=== PATIENT | male | born 1995 | race Caucasian/White ===

== ENCOUNTER 2017-06-03 13:13 | Emergency (ER) | payer SELFPAY ==
[~2017-06-03] VITALS: Ht 180.3 cm; Wt 89.0 kg
[2017-06-03 13:22] VITALS: TEMP 36.9; Ht 180.3 cm; Wt 89.0 kg
--- NOTE | 2017-06-03 14:03 | EMERGENCY ROOM VISIT NOTE ---
History Report prepared by Analisa: Cresencio Samuels Under the Supervision of: Dr. Tomas Huggins M.D. First contact with patient: 13:25 Chief Complaint: FEVER Stated Complaint: FEVER, CHILLS, SWEATING, FAINTING History of Present Illness The patient is a 22 year old white male with a past medical history of foot surgery and syncope who presents to the ED with a cc of intermittent headaches beginning a week ago. He rates his discomfort as a 5/10 in severity. Positive fevers, chills, diaphoresis, occasional drinking, chest pain, caffeine use. Negative vision changes, history of seizures, nausea, vomiting, drug use. The patient states he has been waking up with a headache on the top of his head every morning for a week. He reports that today he woke up this morning experiencing diaphoresis and a fever. He states that he took Advil for his symptoms and admits it has helped relieve symptoms. The patient states that he has been experiencing syncope in the last couple of months, with his last episode 2 months ago. He reports that he went to the [facility] last month because he became dizzy and felt as if he was going to experience another syncopal episode. The patient states he has not been eating much lately and has been pale. He admits that he has been working long hours daily. Source of History: patient Onset: a week ago Position: head Symptom Intensity: 5/10 Timing: intermittent Modifying Factors (Relieving): other (Advil) Associated Symptoms: + fevers, + chills, + chest pain, No nausea, No vomiting Review of Systems See HPI for pertinent positives and negatives. A total of ten systems were reviewed and were otherwise negative. Past Medical & Surgical Surgical Problems: (1) H/O foot surgery Family History Patient reports no known family medical history. Social History Smoking Status: Never Smoker Alcohol Use: occasionally Drug Use: none Marital Status: single Housing Status: lives with family Occupation Status: employed Current/Historical Medications No Active Prescriptions or Reported Meds Allergies Coded Allergies: Penicillins (Verified Allergy, Unknown, unknown, 06/03/17) Physical Exam Vital Signs Date Time Temp Pulse Resp B/P (MAP) Pulse Ox O2 Delivery O2 Flow Rate FiO2 06/03/17 17:26 66 20 126/75 100 06/03/17 15:24 117/78 06/03/17 15:13 61 98 06/03/17 14:16 68 06/03/17 14:10 98 Room Air 06/03/17 13:22 36.9 83 18 130/76 100 Physical Exam GENERAL: Awake, alert, well-appearing, NAD HENT: Normocephalic, atraumatic. EYES: Normal conjunctiva. Sclera non-icteric. NECK: Supple. No nuchal rigidity. FROM. RESPIRATORY: CTAB, no rhonchi, wheezing, crackles CARDIAC: RRR, no MRG ABDOMEN: Soft, NTND, BS+ MSK: No chest wall TTP, no LE edema NEURO: CN 2-12 intact, 5/5 upper and lower extremity strength, no dysmetria, no drift, good finger to nose, no sensory deficits, no field deficits, visual acuity normal to finger count. SKIN: No rash or jaundice noted. Medical Decision & Procedures ER Provider Diagnostic Interpretation: Radiology results as stated below per my review and radiologist interpretation: COMPARISON STUDY: No previous studies for comparison. CT DOSE: 537.48 mGy.cm TECHNIQUE: Helical axial images of the head were obtained without IV contrast. Automated exposure control was utilized for the study. A dose lowering technique was utilized adhering to the principles of ALARA. FINDINGS: No acute intracranial hemorrhage, midline shift or mass effect is present. Ventricular system is normal. Basilar cisterns are patent. White-white differentiation is maintained. There are no findings to suggest acute dural sinus thrombosis or acute territorial infarct. There is a 1.8 x 1.5 cm CSF attenuation retrocerebellar structure just to the left of midline, within the posterior fossa with associated remodeling of the inner table of the calvarium. Visualized portions of the sinuses and mastoid air cells are clear. There is no calvarial fracture. IMPRESSION: 1. No acute intracranial findings. 2. 1.8 x 1.5 cm CSF attenuation retrocerebellar structure just to the left of midline, within the posterior fossa. This could reflect a small arachnoid cyst or jarvis cisterna magna and is of no clinical significance. Electronically signed by: Michael Sanford M.D. 06/03/2017 2:49 PM Dictated Date/Time: 06/03/2017 2:44 PM CHEST 2 VIEWS ROUTINE CLINICAL HISTORY: 22 years-old Male presenting with palpitations, fever, fainting. TECHNIQUE: PA and lateral views of the chest were obtained. COMPARISON: None. FINDINGS: Cardiomediastinal silhouette normal. Lungs and pleural spaces clear. Osseous structures normal. Upper abdomen normal. IMPRESSION: 1. No acute cardiopulmonary disease. Electronically signed by: Enoc Faustin M.D. 06/03/2017 3:52 PM Dictated Date/Time: 06/03/2017 3:52 PM Laboratory Results 06/03/17 14:15 Red Blood Count 4.16, Mean Corpuscular Volume 87.7, Mean Corpuscular Hemoglobin 30.3, Mean Corpuscular Hemoglobin Concent 34.5, Mean Platelet Volume 9.6 06/03/17 14:15 Test 06/03/17 14:15 White Blood Count 4.14 K/uL (4.8-10.8) Red Blood Count 4.16 M/uL (4.7-6.1) Hemoglobin 12.6 g/dL (14.0-18.0) Hematocrit 36.5 % (42-52) Mean Corpuscular Volume 87.7 fL (80-100) Mean Corpuscular Hemoglobin 30.3 pg (25-34) Mean Corpuscular Hemoglobin Concent 34.5 g/dl (32-36) Platelet Count 100 K/uL (130-400) Mean Platelet Volume 9.6 fL (7.4-10.4) RDW Standard Deviation 40.7 fL (36.4-46.3) RDW Coefficient of Variation 12.7 % (11.5-14.5) Neutrophils % (Manual) 47.2 % Lymphocytes % (Manual) 15.5 % Variant Lymphocytes % (manual) 30.9 % Monocytes % (Manual) 6.4 % Neutrophils # (Manual) 1.95 K/uL (1.4-6.5) Total Absolute Neutrophils 1.95 K/uL (1.4-6.5) Lymphocytes # (Manual) 0.64 K/uL (1.2-3.4) Absolute Variant Lymphocytes 1.28 K/uL Total Absolute Lymphocytes 1.92 K/uL (1.2-3.4) Monocytes # (Manual) 0.26 K/uL (0.11-0.59) Platelet Estimate DECREASED Red Blood Cell Morphology Unremarkable Anion Gap 5.0 mmol/L (3-11) Est Creatinine Clear Calc Drug Dose 112.1 ml/min Estimated GFR () 109.9 Estimated GFR (Non- 94.8 BUN/Creatinine Ratio 18.5 (10-20) Calcium Level 8.7 mg/dl (8.5-10.1) Magnesium Level 2.1 mg/dl (1.8-2.4) Total Bilirubin 0.8 mg/dl (0.2-1) Direct Bilirubin 0.2 mg/dl (0-0.2) Aspartate Amino Transf (AST/SGOT) 23 U/L (15-37) Alanine Aminotransferase (ALT/SGPT) 29 U/L (12-78) Alkaline Phosphatase 53 U/L (45-117) Total Protein 7.2 gm/dl (6.4-8.2) Albumin 3.5 gm/dl (3.4-5.0) Thyroid Stimulating Hormone (TSH) 5.960 uIu/ml (0.300-4.500) Laboratory results reviewed by me ECG Indication: syncope Rate (beats per minute): 67 Rhythm: normal sinus Findings: T-wave inversion (Single in V2), other (Normal intervals and axis, No other STS or TWI changes) ED Course 1350: The patient was evaluated in room C06. A complete history and physical exam was performed. 1656: I reevaluated the patient. Discussed results and discharge instructions: He verbalized understanding and agreement. The patient is ready for discharge. Medical Decision Triage Nursing notes reviewed. The patient is a 22 year old white male with a past medical history of foot surgery and syncope who presents to the ED with a cc of intermittent headaches beginning a week ago. The patient's presentation and history were concerning for etiologies such as vasovagal event, infection, hypoglycemia, electrolyte abnormalities, cardiac sources, intracerebral event, toxicologic, neurologic, as well as others were entertained. Patient was seen and evaluated the bedside. Patient had complained of 2 separate syncopal episodes that have been several months apart most recently approximately 2 months ago. Patient states he has had some more chronic headaches. No prior history of thrombophilia. No history of DVT or PE. Patient states that he has no changes in his vision. Patient states that his headaches are primarily in the morning on the top of the head of his head and typically get better with Advil. Patient does not take any blood thinning medications and denies any recent trauma. The patient has a nonfocal an unremarkable neurologic exam. Patient did have blood work that was completed along with chest x-ray, EKG, TSH, CT of the brain. CT of the brain did show a posterior fossa likely cyst but this is likely not clinically significant. Otherwise this imaging was negative acute. Patient did have a negative chest x- ray. Patient's blood work did show he had some mild anemia and mild thrombocytopenia. Patient does not have any evidence of spontaneous bleeding, petechiae, nor purpura. Patient's TSH was mildly elevated. Patient was advised that he would need further follow-up and treatment for this as he may be suffering from hypothyroidism. Patient was told to increase in of red meat he needs to help with his anemia. Patient was also given further resources given that he does not have insurance to follow-up with a primary care physician. The patient has no signs of meningismus and was not febrile. I do not believe he has meningitis and I do not believe he requires any further imaging of the head or neck at this time. Patient was deemed suitable for outpatient follow-up and treatment. Patient was given strict follow-up, discharge, and return precautions. All questions were answered. Patient was deemed suitable for outpatient follow-up at this time. Patient agreed with the plan of care and was safely discharged home. Medication Reconcilliation Current Medication List: was personally reviewed by me Blood Pressure Screening Patient's blood pressure: Normal blood pressure Impression Primary Impression: Hypothyroid Additional Impression: Anemia Scribe Attestation The scribe's documentation has been prepared under my direction and personally reviewed by me in its entirety. I confirm that the note above accurately reflects all work, treatment, procedures, and medical decision making performed by me. Departure Information Dispostion Home / Self-Care Prescriptions No Active Prescriptions or Reported Meds Referrals No Doctor, Assigned (PCP) Patient Instructions Anemia, ED Hypothyroidism, My [facility] Additional Instructions Please return to the emergency department if you have worsening or recurrent symptoms not amenable to at-home treatment. Please call for a follow-up appointment with her primary care physician. Please take your medications as prescribed. If you have other concerns and/or complaints please feel free to also call your primary care physician's office or return the ED for further evaluation, management, and treatment. Please follow-up with a primary care physician to further discuss the thyroid as well as her mild anemia. You may take 600 mg Ibuprofen every 6 hours as needed for pain with food for no more than 2 consecutive days. You may take tylenol 1000 mg every 6 hours as needed for pain. You may take motrin and tylenol separately or at the same time. Take your medications as prescribed. You have been examined and treated today on an emergency basis only. This is not a substitute for, or an effort to provide, complete comprehensive medical care. It is impossible to recognize and treat all injuries or illnesses in a single emergency department visit. It is therefore important that you follow up closely with [facility], your PCP, and/or your specialist(s). Call as soon as possible for an appointment. Thank you for your time and consideration. I look forward to speaking with you again soon. Please don't hesitate to call us if you have any questions. Problem Qualifiers Primary Impression: Hypothyroid Hypothyroidism type: unspecified Qualified Codes: E03.9 - Hypothyroidism, unspecified Additional Impression: Anemia Anemia type: unspecified type Qualified Codes: D64.9 - Anemia, unspecified
[2017-06-03 14:10] VITALS: O2SAT 98
[2017-06-03 14:44] LABS: HEMATOCRIT 36.5 % (42-52); HEMOGLOBIN 12.6 g/dL (14.0-18.0); MEAN CELL VOLUME 87.7 fL (80-100); MEAN CORPUSCULAR HEMOGLOBIN 30.3 pg (25-34); MEAN CORPUSCULAR HGB CONC 34.5 g/dl (32-36); MEAN PLATELET VOLUME 9.6 fL (7.4-10.4); PLATELET COUNT 100 K/uL (130-400); RED CELL DISTRIBUTION WIDTH CV 12.7 % (11.5-14.5); RED CELL DISTRIBUTION WIDTH SD 40.7 fL (36.4-46.3); WHITE BLOOD COUNT 4.14 K/uL (4.8-10.8)
[2017-06-03 14:47] LABS: ALBUMIN 3.5 gm/dl (3.4-5.0); CALCIUM 8.7 mg/dl (8.5-10.1); CREATININE 1.1 mg/dl (0.60-1.40); POTASSIUM 4.1 mmol/L (3.5-5.1)
--- NOTE | 2017-06-03 14:50 | DIAGNOSTIC IMAGING REPORT ---
CT OF THE HEAD WITHOUT CONTRAST CLINICAL HISTORY: Chronic headache. Fever. Chills. COMPARISON STUDY: No previous studies for comparison. CT DOSE: 537.48 mGy.cm TECHNIQUE: Helical axial images of the head were obtained without IV contrast. Automated exposure control was utilized for the study. A dose lowering technique was utilized adhering to the principles of ALARA. FINDINGS: No acute intracranial hemorrhage, midline shift or mass effect is present. Ventricular system is normal. Basilar cisterns are patent. White-white differentiation is maintained. There are no findings to suggest acute dural sinus thrombosis or acute territorial infarct. There is a 1.8 x 1.5 cm CSF attenuation retrocerebellar structure just to the left of midline, within the posterior fossa with associated remodeling of the inner table of the calvarium. Visualized portions of the sinuses and mastoid air cells are clear. There is no calvarial fracture. IMPRESSION: 1. No acute intracranial findings. 2. 1.8 x 1.5 cm CSF attenuation retrocerebellar structure just to the left of midline, within the posterior fossa. This could reflect a small arachnoid cyst or jarvis cisterna magna and is of no clinical significance. Electronically signed by: Michael Sanford M.D. 06/03/2017 2:49 PM Dictated Date/Time: 06/03/2017 2:44 PM
[2017-06-03 14:58] LABS: TOTAL PROTEIN 7.2 gm/dl (6.4-8.2)
--- NOTE | 2017-06-03 15:54 | DIAGNOSTIC IMAGING REPORT ---
CHEST 2 VIEWS ROUTINE CLINICAL HISTORY: 22 years-old Male presenting with palpitations, fever, fainting. TECHNIQUE: PA and lateral views of the chest were obtained. COMPARISON: None. FINDINGS: Cardiomediastinal silhouette normal. Lungs and pleural spaces clear. Osseous structures normal. Upper abdomen normal. IMPRESSION: 1. No acute cardiopulmonary disease. Electronically signed by: Enoc Faustin M.D. 06/03/2017 3:52 PM Dictated Date/Time: 06/03/2017 3:52 PM
[2017-06-03 17:26] VITALS: BP 126/75; PULSE 66; O2SAT 100
== END 2017-06-03 17:15 | disposition home or self-care (01) ==
LOC: C.EDB 13:14 → C.EDC 17:15
DX: E03.9 Hypothyroidism, unspecified (principal); D64.9 Anemia, unspecified; D69.6 Thrombocytopenia, unspecified

== ENCOUNTER 2018-01-01 14:22 | Emergency (ER) | payer SELFPAY ==
[~2018-01-01] VITALS: Ht 180.3 cm; Wt 89.2 kg
[2018-01-01 14:29] VITALS: TEMP 36.7; Ht 180.3 cm; Wt 89.2 kg
[2018-01-01] MEDS ORDERED: SODIUM CHLORIDE 0.9% 1000ML 1,000 ML IV ONE (14:44)
[2018-01-01] MEDS ORDERED: KETOROLAC TROMETHAMINE 30 MG/ML VIAL IV STA (14:44)
--- NOTE | 2018-01-01 15:02 | DIAGNOSTIC IMAGING REPORT ---
CHEST ONE VIEW PORTABLE CLINICAL HISTORY: CHEST PAIN dyspnea COMPARISON STUDY: No previous studies for comparison. FINDINGS: The bones soft tissues and hemidiaphragms are normal. The cardiomediastinal silhouette is normal. The lungs are clear. The pulmonary vasculature is normal. IMPRESSION: Negative chest. The above report was generated using voice recognition software. It may contain grammatical, syntax or spelling errors. Electronically signed by: Tacos Guerra M.D. 01/01/2018 3:00 PM Dictated Date/Time: 01/01/2018 3:00 PM
[2018-01-01 15:07] LABS: BASO % 0.3 %; BASO ABS # 0.02 K/uL (0-0.2); EOS ABS # 0.06 K/uL (0-0.5); HEMATOCRIT 39.5 % (42-52); HEMOGLOBIN 13.7 g/dL (14.0-18.0); IG# 0.01 K/uL (0.00-0.02); LYMPH % 23.9 %; MEAN CELL VOLUME 89.8 fL (80-100); MEAN CORPUSCULAR HEMOGLOBIN 31.1 pg (25-34); MEAN CORPUSCULAR HGB CONC 34.7 g/dl (32-36); MEAN PLATELET VOLUME 9.8 fL (7.4-10.4); MONO % 6.3 %; MONO ABS # 0.37 K/uL (0.11-0.59); NEUT % 68.3 %; NEUT ABS # 3.99 K/uL (1.4-6.5); PLATELET COUNT 215 K/uL (130-400); RED CELL DISTRIBUTION WIDTH CV 12.7 % (11.5-14.5); RED CELL DISTRIBUTION WIDTH SD 41.1 fL (36.4-46.3); WHITE BLOOD COUNT 5.85 K/uL (4.8-10.8)
[2018-01-01 15:09] VITALS: O2SAT 94
[2018-01-01 15:49] LABS: ALBUMIN 4.3 gm/dl (3.4-5.0); ALKALINE PHOSPHATASE 44 U/L (45-117); ALT/SGPT 24 U/L (12-78); AST/SGOT 19 U/L (15-37); BLOOD UREA NITROGEN 21 mg/dl (7-18); CALCIUM 8.8 mg/dl (8.5-10.1); CARBON DIOXIDE 29 mmol/L (21-32); CREATININE 1.15 mg/dl (0.60-1.40); GLUCOSE 105 mg/dl (70-99); POTASSIUM 4.1 mmol/L (3.5-5.1); SODIUM 139 mmol/L (136-145); TOTAL PROTEIN 7.2 gm/dl (6.4-8.2)
[2018-01-01 16:22] VITALS: BP 108/58; PULSE 47; O2SAT 98
--- NOTE | 2018-01-01 18:43 | EMERGENCY ROOM VISIT NOTE ---
History Report prepared by Analisa: Joceline Grimes Under the Supervision of: Dr. Thomas Angulo M.D. First contact with patient: 14:35 Chief Complaint: CHEST PAIN Stated Complaint: CHEST PAINS, LEFT ARM TINGLING,COLD History of Present Illness The patient is a 22 year old male who presents to the Emergency Room with complaints of persistent chest pain starting earlier today. 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 He also started having tingling in his left arm from his upper arm down into all of his fingers. He is feeling mildly SOB. He has some pain with deep breaths. He has no numbness or weakness in his right arm or legs. His chest pain is currently slightly improved, but he still feels tight. He has had episodes of lightheadedness in the past. He felt lightheaded 2 days ago. He has passed out one time before with the lightheadedness. He did not lose consciousness today. He has been told that he has anemia and hypotension. He is currently not on any medications. He took some Advil this morning for headache and knee pain from work. He also had some neck pain this morning. He denies any nausea, abdominal pain, leg swelling, or cough. He denies having any medical problems. He denies any family history of similar issues. He has been eating and drinking today. He does not smoke. He does not use alcohol daily. He denies any drug use. He denies any recent travel. He had asthma as a child which has resolved. Source of History: patient Onset: earlier today Position: chest Quality: sharp, other (tight) Timing: other (persistent) Modifying Factors (Worsening): breathing Associated Symptoms: + headache, + neck pain, + SOB, + numbness, No cough, No nausea, No abdominal pain, No weakness Review of Systems See HPI for pertinent positives and negatives. A total of ten systems were reviewed and were otherwise negative. Past Medical & Surgical Surgical Problems: (1) H/O foot surgery Family History Diabetes mellitus Hypertension Social History Smoking Status: Never Smoker Alcohol Use: occasionally Drug Use: none Occupation Status: employed Current/Historical Medications No Active Prescriptions or Reported Meds Allergies Coded Allergies: Penicillins (Verified Allergy, Unknown, unknown, 01/01/18) Physical Exam Vital Signs Date Time Temp Pulse Resp B/P (MAP) Pulse Ox O2 Delivery O2 Flow Rate FiO2 01/01/18 16:22 47 19 108/58 98 01/01/18 15:49 51 24 121/67 99 Room Air 01/01/18 15:18 57 01/01/18 15:09 94 Room Air 01/01/18 15:09 98 Room Air 01/01/18 15:09 57 21 121/67 99 Room Air 01/01/18 14:40 98 Room Air 01/01/18 14:29 36.7 57 18 124/72 99 Room Air Physical Exam GENERAL: Awake, alert, well-appearing, in no distress HENT: Normocephalic, atraumatic. Oropharynx unremarkable. EYES: Normal conjunctiva. Sclera non-icteric. NECK: Supple. No nuchal rigidity. RESPIRATORY: Clear to auscultation. No wheezes. Normal respiratory effort. CARDIAC: Normal rate. Normal rhythm. Extremities warm and well perfused. GI: Soft, non-distended. No tenderness to palpation. No rebound or guarding. No masses. RECTAL: Deferred. MUSCULOSKELETAL: Atraumatic. Chest examination reveals mild anterior chest wall tenderness. The back is symmetrical on inspection without obvious abnormality. There is no CVA tenderness to palpation. LOWER EXTREMITIES: Calves are equal size bilaterally and non-tender. No edema NEURO: Normal sensorium. No motor deficits noted. Decreased sensation over his left forearm and hand. Sensation to gross touch intact. Intact strength of the left upper extremity. SKIN: Warm and dry. No rash or jaundice noted. Medical Decision & Procedures ER Provider Diagnostic Interpretation: Radiology results as stated below per my review and radiologist interpretation: CHEST ONE VIEW PORTABLE CLINICAL HISTORY: CHEST PAIN dyspnea COMPARISON STUDY: No previous studies for comparison. FINDINGS: The bones soft tissues and hemidiaphragms are normal. The cardiomediastinal silhouette is normal. The lungs are clear. The pulmonary vasculature is normal. IMPRESSION: Negative chest. The above report was generated using voice recognition software. It may contain grammatical, syntax or spelling errors. Electronically signed by: Tacos Guerra M.D. 01/01/2018 3:00 PM Dictated Date/Time: 01/01/2018 3:00 PM Laboratory Results 01/01/18 14:50 Red Blood Count 4.40, Mean Corpuscular Volume 89.8, Mean Corpuscular Hemoglobin 31.1, Mean Corpuscular Hemoglobin Concent 34.7, Mean Platelet Volume 9.8, Neutrophils (%) (Auto) 68.3, Lymphocytes (%) (Auto) 23.9, Monocytes (%) (Auto) 6.3, Eosinophils (%) (Auto) 1.0, Basophils (%) (Auto) 0.3, Neutrophils # (Auto) 3.99, Lymphocytes # (Auto) 1.40, Monocytes # (Auto) 0.37, Eosinophils # (Auto) 0.06, Basophils # (Auto) 0.02 01/01/18 14:30 Test 01/01/18 14:30 01/01/18 14:50 Anion Gap 5.0 mmol/L (3-11) Est Creatinine Clear Calc Drug Dose 107.3 ml/min Estimated GFR () 104.1 Estimated GFR (Non- 89.8 BUN/Creatinine Ratio 18.5 (10-20) Calcium Level 8.8 mg/dl (8.5-10.1) Total Bilirubin 0.6 mg/dl (0.2-1) Direct Bilirubin 0.2 mg/dl (0-0.2) Aspartate Amino Transf (AST/SGOT) 19 U/L (15-37) Alanine Aminotransferase (ALT/SGPT) 24 U/L (12-78) Alkaline Phosphatase 44 U/L (45-117) Troponin I < 0.015 ng/ml (0-0.045) Total Protein 7.2 gm/dl (6.4-8.2) Albumin 4.3 gm/dl (3.4-5.0) Thyroid Stimulating Hormone (TSH) 3.130 uIu/ml (0.300-4.500) White Blood Count 5.85 K/uL (4.8-10.8) Red Blood Count 4.40 M/uL (4.7-6.1) Hemoglobin 13.7 g/dL (14.0-18.0) Hematocrit 39.5 % (42-52) Mean Corpuscular Volume 89.8 fL (80-100) Mean Corpuscular Hemoglobin 31.1 pg (25-34) Mean Corpuscular Hemoglobin Concent 34.7 g/dl (32-36) Platelet Count 215 K/uL (130-400) Mean Platelet Volume 9.8 fL (7.4-10.4) Neutrophils (%) (Auto) 68.3 % Lymphocytes (%) (Auto) 23.9 % Monocytes (%) (Auto) 6.3 % Eosinophils (%) (Auto) 1.0 % Basophils (%) (Auto) 0.3 % Neutrophils # (Auto) 3.99 K/uL (1.4-6.5) Lymphocytes # (Auto) 1.40 K/uL (1.2-3.4) Monocytes # (Auto) 0.37 K/uL (0.11-0.59) Eosinophils # (Auto) 0.06 K/uL (0-0.5) Basophils # (Auto) 0.02 K/uL (0-0.2) RDW Standard Deviation 41.1 fL (36.4-46.3) RDW Coefficient of Variation 12.7 % (11.5-14.5) Immature Granulocyte % (Auto) 0.2 % Immature Granulocyte # (Auto) 0.01 K/uL (0.00-0.02) Laboratory results reviewed by me Medications Administered Medications (Trade) Dose Ordered Sig/Jossy Route Start Time Stop Time Status Last Admin Dose Admin Ketorolac Tromethamine (Toradol Inj) 15 mg NOW STAT IV 01/01/18 14:44 01/01/18 14:46 DC 01/01/18 15:06 15 MG Sodium Chloride 1,000 ml @ 999 mls/hr Q1H1M ONCE IV 01/01/18 14:44 01/01/18 15:44 DC 01/01/18 15:07 999 MLS/HR ECG Per My Interpretation Indication: chest pain Rate (beats per minute): 58 Rhythm: sinus bradycardia Findings: no ectopy, other (normal intervals, normal axis, no ST segment elevation) Comparison ECG Date: 03-Jun-2017 Change: Slightly more bradycardic, no other significant change. ED Course 1436: The patient was evaluated in room C2B. A complete history and physical exam was performed. 1444: Toradol Inj 15 mg IV, Sodium Chloride 1000 ml @ 999 mls/hr IV. 1559: I reevaluated the patient. Discussed results and discharge instructions: He verbalized understanding and agreement. The patient is ready for discharge. Medical Decision Etiologies such as cardiac ischemia, aortic dissection, pulmonary embolism, pneumonia, pneumothorax, musculoskeletal, infections, gastrointestinal, as well as others were entertained. Patient presents after episode of some central sharp chest pain and some numbness in the left arm and hand today. 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 States he did eat and drink today. A little bit of neck pain earlier today. Denies trauma. [place] somewhat lightheaded earlier. With a history of syncope and lightheadedness with negative prior workup. No family history of early cardiac . Did not take anything prior to arrival other than Advil upon waking this morning. Does not seem consistent with PE via PERC rules. Doubt dissection. Chest x-ray shows no evidence of pneumothorax or pneumonia. Doubt cardiac disease. Basic labs were sent; unremarkable. No weakness component and doubt this represents a CVA. Could be a bit of a component of cervical radiculopathy. No objective neuro deficits. Doubt intracranial lesion or bleed. Patient not hypotensive here and ambulatory. Treated symptomatically some Toradol and hydrated. Improving symptoms. Believe that outpatient follow-up is appropriate. He and family agree. Medication Reconcilliation Current Medication List: was personally reviewed by me Blood Pressure Screening Patient's blood pressure: Normal blood pressure Impression Primary Impression: Non-cardiac chest pain Additional Impressions: Lightheadedness Left arm numbness Scribe Attestation The scribe's documentation has been prepared under my direction and personally reviewed by me in its entirety. I confirm that the note above accurately reflects all work, treatment, procedures, and medical decision making performed by me. Departure Information Dispostion Home / Self-Care Prescriptions No Active Prescriptions or Reported Meds Referrals No Doctor, Assigned (PCP) Forms HOME CARE DOCUMENTATION FORM, IMPORTANT VISIT INFORMATION Patient Instructions My [facility] Additional Instructions Continue to maintain good hydration and eat regular meals. You can utilize Tylenol or Motrin at home for pain at this point. We did not find any acute evidence of heart injury at this point and I believe her pain is more likely musculoskeletal in nature. Would continue to follow-up as an outpatient with your regular doctor over the week for further evaulation. If at any time you have new or worrisome symptoms please return here for reevaluation. Problem Qualifiers
== END 2018-01-01 16:22 | disposition home or self-care (01) ==
LOC: C.EDB 14:22 → C.EDC 16:22
DX: R07.89 Other chest pain (principal); R42 Dizziness and giddiness; R20.0 Anesthesia of skin; Z83.3 Family history of diabetes mellitus; Z82.49 Family history of ischemic heart disease and other diseases of the circulatory system; Z88.0 Allergy status to penicillin